=== PATIENT | male | born 1990 | race Caucasian/White ===

== ENCOUNTER 2018-04-02 11:00 | Emergency (ER) | payer MEDICAID, SELFPAY ==
[2018-04-02 11:05] VITALS: BP 162/91; PULSE 85; RESP 18; TEMP 35.9; O2SAT 97
--- NOTE | 2018-04-02 11:25 | DI.CT_ITS ---
SYMPTOMS/DIAGNOSIS: CHEST PAIN, HEMOPTYSIS PE CHEST CT: CT angiography was performed with multi slice acquisition and multi planar and 3D reconstruction. The study was carried out according to the usual protocol with intravenous administration of 125 cc's of Omnipaque 350. There is no evidence of pulmonary embolic disease. There are ground glass densities in the lungs. The findings nonspecific but could represent an acute pneumonitis. There is no pneumothorax or pleural effusion. The heart is not enlarged. There is no evidence of a pericardial effusion. There is no evidence of an aortic aneurysm or dissection.
--- NOTE | 2018-04-02 11:28 | W.ED.GENAD ---
Discharge Plan Disposition Patient Disposition: HOME Condition: Stable Discharge Details Chief Complaint: SOB Clinical Impression: Chest pain Primary Care Provider: Norm Chamorro ED Provider: Cuco Yates Home Meds and New Rx's Prescriptions: New azithromycin 500 mg tablet 250 mg PO DAILY 5 Days Qty: 2.5 RF: 0 Discharge Instructions Instructions: Chest Pain (ED) Additional Instructions: your blood work and cat scan did not show any significant abnormalities. Given your cough with blood we are starting you on antibiotics follow up with your primary care provider within a week if you have significant worsening of pain or difficulty breathing return to the emergency department Discharge Data Discharge Physician: Cuco Yates Medical Decision Making MDM Narrative Medical decision making narrative: 27 yo male who denies chronic medical problems comes in with cc of left sided chest pain. He states it started on Friday while having intercourse and states he felt a crack in his left sided of his chest. continues to have pain, nonradiating and no pain with exertion, and no n/v or diaphoresis. Does have pain with palpation to the left side of his chest. He does note he has had small amount of blood when he coughs in the morning the past few days as well. his wells score is moderate so will obtain cta to eval for PE. No tearing back pain to suggest dissection and normal vascular exam. Heart score is 1 due to smoking, will send troponin pt's pain resolved and only has pain with palpation to left chest. labs unremarkable, given length of time with symptoms do notfeel repeat troponin indicated. Awaiting CTA CTA shows no acute findings, has nonspecific ground glass opacities per Dr. Salmon, remains stable. I advised he f/u with pcp within one week and return precautions given. Given he states he has had some streaking blood tinged sputum will place on abx to cover for acute bronchitis Differential Diagnosis ptx, chest wall strain, pe, acs Imaging Data Radiologic Study: Attestation: I personally reviewed and interpreted this imaging study as follows: Imaging: CT Scan My impression: no acute findings Radiologist's impression: nonspecific ground glass opacities per Dr. Salmon Lab Data Lab results reviewed: Yes I reviewed the patient's lab results. ECG Data Attestation: I personally reviewed and interpreted this ECG (s) as follows: Prior ECG tracings: not available for review Interpretation: sinus rhythm, left axis, normal pr, no acute ischemic findings HPI General Mode of arrival: ambulatory. Date/Time Provider Initiated Documentation: 04/02/18 11:18. Limitations to Documentation: no limitations. Information obtained by: patient. History of Present Illness 27 year old M presents to the emergency department with the chief complaint of chest pain, described as moderate, with intensity rated at 3. Quality is described as other (tightness), and is localized to the chest. Patient reports no radiation. Patient started experiencing this day(s) (5) and it has been constant. No relieving factors improve symptom(s), No exacerbating factors reported . Patient notes other (hemoptysis). Patient did receive the following treatments prior to arrival, none Related Data Previous Rx's Medication Instructions Recorded azithromycin 250 mg PO DAILY 5 Days #2.5 tab 04/02/18 Allergies Allergy/AdvReac Type Severity Reaction Status Date / Time No Known Allergies Allergy Unverified 04/02/18 11:17 General Stated Complaint: SOB JOSE: 2 Review of Systems Review of Systems All systems reviewed & are unremarkable except as noted in HPI and below Constitutional Denies chills, Denies fever(s) and Denies weakness Eyes Patient Denies loss of vision ENT Denies change in voice Cardiovascular Reports chest pain and Reports dyspnea Respiratory Reports dyspnea Gastrointestinal Denies abdominal pain, Denies nausea and Denies vomiting Genitourinary Denies dysuria Musculoskeletal Denies joint swelling Integumentary/Breasts Denies rash Neurologic Denies loss of vision and Denies weakness Psychiatric Denies depression Endocrine Denies cold intolerance and Denies heat intolerance Allergic/Immunologic Reports urticaria [facility] Social History Smoking/Tobacco Use Status: Current every day Exam Const General: no acute distress Orientation: alert [facility] Head: normal to inspection Ears: external ears normal General nose exam: external nose normal Mouth: moist mucous membranes Eyes General: appearance normal, both eyes and all related structures Neck Neck: normal visual inspection Resp Effort & Inspection: normal respiratory effort and able to speak in complete sentences Cardio Rate: regular rate Skin General skin exam: no rashes or lesions noted Neuro General: alert and oriented x3 Extrem General: normal to inspection Psych Mental Status: mental status grossly normal Course Vital Signs Temperature 35.9 C L 04/02/18 11:05 Pulse 85 04/02/18 11:05 Respiratory Rate 18 04/02/18 11:05 Blood Pressure 162/91 H 04/02/18 11:05 Pulse Oximetry 97 04/02/18 11:05 Temperature 35.9 C L 04/02/18 11:05 Pulse 85 04/02/18 11:05 Respiratory Rate 18 04/02/18 11:05 Blood Pressure 162/91 H 04/02/18 11:05 Pulse Oximetry 97 04/02/18 11:05
[2018-04-02] MEDS: Aspirin 81 MG CHEW 324 MG CH (11:30)
--- NOTE | 2018-04-02 11:34 | ED.GENADUL_ITS ---
Discharge Plan Disposition Patient Disposition: HOME Condition: Stable Discharge Details Chief Complaint: SOB Clinical Impression: Chest pain Primary Care Provider: Norm Chamorro ED Provider: Cuco Yates Home Meds and New Rx's Prescriptions: New azithromycin 500 mg tablet 250 mg PO DAILY 5 Days Qty: 2.5 RF: 0 Discharge Instructions Instructions: Chest Pain (ED) Additional Instructions: your blood work and cat scan did not show any significant abnormalities. Given your cough with blood we are starting you on antibiotics follow up with your primary care provider within a week if you have significant worsening of pain or difficulty breathing return to the emergency department Discharge Data Discharge Physician: Cuco Yates Medical Decision Making MDM Narrative Medical decision making narrative: 27 yo male who denies chronic medical problems comes in with cc of left sided chest pain. He states it started on Friday while having intercourse and states he felt a crack in his left sided of his chest. continues to have pain, nonradiating and no pain with exertion, and no n/v or diaphoresis. Does have pain with palpation to the left side of his chest. He does note he has had small amount of blood when he coughs in the morning the past few days as well. his wells score is moderate so will obtain cta to eval for PE. No tearing back pain to suggest dissection and normal vascular exam. Heart score is 1 due to smoking, will send troponin pt's pain resolved and only has pain with palpation to left chest. labs unremarkable, given length of time with symptoms do notfeel repeat troponin indicated. Awaiting CTA CTA shows no acute findings, has nonspecific ground glass opacities per Dr. Salmon , remains stable. I advised he f/u with pcp within one week and return precautions given. Given he states he has had some streaking blood tinged sputum will place on abx to cover for acute bronchitis Differential Diagnosis ptx, chest wall strain, pe, acs Imaging Data Radiologic Study: Attestation: I personally reviewed and interpreted this imaging study as follows: Imaging: CT Scan My impression: no acute findings Radiologist's impression: nonspecific ground glass opacities per Dr. Salmon Lab Data Lab results reviewed: Yes I reviewed the patient's lab results. ECG Data Attestation: I personally reviewed and interpreted this ECG (s) as follows: Prior ECG tracings: not available for review Interpretation: sinus rhythm, left axis, normal pr, no acute ischemic findings HPI General Mode of arrival: ambulatory . Date/Time Provider Initiated Documentation: 04/02/18 11:18 . Limitations to Documentation: no limitations . Information obtained by: patient . History of Present Illness 27 year old M presents to the emergency department with the chief complaint of chest pain, described as moderate, with intensity rated at 3. Quality is described as other (tightness), and is localized to the chest. Patient reports no radiation. Patient started experiencing this day(s) (5) and it has been constant. No relieving factors improve symptom(s), No exacerbating factors reported . Patient notes other (hemoptysis). Patient did receive the following treatments prior to arrival, none Related Data Previous Rx's Medication Instructions Recorded azithromycin 250 mg PO DAILY 5 Days #2.5 tab 04/02/18 Allergies Allergy/AdvReac Type Severity Reaction Status Date / Time No Known Allergies Allergy Unverified 04/02/18 11:17 General Stated Complaint: SOB JOSE: 2 Review of Systems Review of Systems All systems reviewed & are unremarkable except as noted in HPI and below Constitutional Denies chills, Denies fever(s) and Denies weakness Eyes Patient Denies loss of vision ENT Denies change in voice Cardiovascular Reports chest pain and Reports dyspnea Respiratory Reports dyspnea Gastrointestinal Denies abdominal pain, Denies nausea and Denies vomiting Genitourinary Denies dysuria Musculoskeletal Denies joint swelling Integumentary/Breasts Denies rash Neurologic Denies loss of vision and Denies weakness Psychiatric Denies depression Endocrine Denies cold intolerance and Denies heat intolerance Allergic/Immunologic Reports urticaria [facility] Social History Smoking/Tobacco Use Status: Current every day Exam Const General: no acute distress Orientation: alert [facility] Head: normal to inspection Ears: external ears normal General nose exam: external nose normal Mouth: moist mucous membranes Eyes General: appearance normal, both eyes and all related structures Neck Neck: normal visual inspection Resp Effort & Inspection: normal respiratory effort and able to speak in complete sentences Cardio Rate: regular rate Skin General skin exam: no rashes or lesions noted Neuro General: alert and oriented x3 Extrem General: normal to inspection Psych Mental Status: mental status grossly normal Course Vital Signs Temperature 35.9 C L 04/02/18 11:05 Pulse 85 04/02/18 11:05 Respiratory Rate 18 04/02/18 11:05 Blood Pressure 162/91 H 04/02/18 11:05 Pulse Oximetry 97 04/02/18 11:05 Temperature 35.9 C L 04/02/18 11:05 Pulse 85 04/02/18 11:05 Respiratory Rate 18 04/02/18 11:05 Blood Pressure 162/91 H 04/02/18 11:05 Pulse Oximetry 97 04/02/18 11:05
[2018-04-02 11:46] LABS: Abs Immature Grans 0.04 k/cumm (0.0-0.09); Absolute Basophil Count 0.06 k/cumm (0.0-0.2); Absolute Eosinophil Count 0.31 k/cumm (0.0-0.7); Absolute Lymphocyte Count 2.06 k/cumm (1.2-3.4); Absolute Monocyte Count 0.66 k/cumm (0.11-0.7); Absolute Neutrophil Count 6.74 k/cumm (1.2-6.7); Basophils % 0.6; Eosinophils % 3.1; HCT 49.6 % (40.0-50.0); HGB 18.1 g/dL (13.5-17.5); Immature Grans % 0.4; Lymphocytes % 20.9; Mean Corp. HGB Concentration 36.5 g/dL (32.0-36.0); Mean Corpuscular Hemoglobin 31.8 pg (27.0-33.0); Mean Corpuscular Volume 87.2 fL (80-95); Mean Platelet Volume 10.6 fL (8.0-11.0); Monocytes % 6.7; Neutrophils % 68.3; Platelet Count 165 x1000/uL (130-400); RBC 5.69 m/cumm (4.50-6.00); White Blood Cell Count 9.87 k/cumm (4.4-10.8)
[2018-04-02 12:02] LABS: PTT Activated 23.9 sec (21.0-31.4)
[2018-04-02 12:07] LABS: ALT 55 U/L (12-78); AST 23 U/L (15-37); Albumin 3.3 g/dL (3.4-5.0); Alkaline Phosphatase 75 U/L (46-116); BUN 15 mg/dL (7-18); Bilirubin, Total 0.6 mg/dL (0.2-1.0); CREATININE 1.14 mg/dL (0.70-1.30); Calcium 8.5 mg/dL (8.5-10.1); Chloride 100 mmol/L (98-107); Glucose 367 mg/dL (70-100); Potassium 4.4 mmol/L (3.5-5.1); Sodium 134 mmol/L (136-145); Total Protein 7.1 g/dL (6.4-8.2)
[2018-04-02 12:08] LABS: Troponin I < 0.02 ng/mL (0.00-0.06)
[2018-04-02] MEDS: Omnipaque 350 MG/ML 100 ML BTL IJ (12:23)
[2018-04-02 13:14] VITALS: RESP 20
[2018-04-02 13:15] VITALS: BP 145/80; PULSE 88; RESP 18; TEMP 36.9; O2SAT 99
== END 2018-04-02 13:16 | disposition home or self-care (01) ==
PROVIDERS: Emergency Provider Emergency Medicine; PCP Family Medicine
DX: R07.9 Chest pain, unspecified (principal)
CPT/HCPCS: 36415; 71275; 80053; 93005; 99285; 83735; 84484; 85025; 85610; 85730; 93010; 99284; J3490

== ENCOUNTER 2019-07-07 08:44 | Emergency (ER) | payer SELFPAY ==
[2019-07-07] VITALS (60 sets, daily range): BP systolic 128–177; BP diastolic 61–82; PULSE 78–95; RESP 4–32; TEMP 36.6; O2SAT 95–99
--- NOTE | 2019-07-07 09:15 | ED.GENADUL_ITS ---
Discharge Plan Disposition Patient Disposition: HOME Condition: Improving Discharge Details Chief Complaint: SOB Clinical Impression: Gastritis Primary Care Provider: Norm Chamorro ED Provider: Henri Joshi Home Meds and New Rx's Prescriptions: No Action albuterol sulfate [ProAir HFA] 90 mcg/actuation Hfa Aerosol Inhaler 2 puff INHALATION DIRECTED PRNRF: 0 Discharge Instructions Instructions: Gastritis (ED) Medical Decision Making 29-year-old male presents from home partner. He complains of weeks of nausea, bloating, loose watery stool and increased flatus. This is in context of recent URI that was treated with azithromycin, finishing 4 days ago. He feels his respiratory symptoms are improving. His exam reveals initial mild hypertension that resolves, otherwise normal vital signs. He is tender in the epigastrium and mildly so diffusely in the abdomen. Differential diagnosis includes posttussive strain, gastritis, colitis, diverticulitis, atypical presentation of other peritonitis. Patient had screening laboratories obtained and was referred for CT images. His white blood cell count is 8, hematocrit 48, platelets are 149. Chemistries show sodium 137, test 3.9, chloride 100, bicarb 25, BUN 14, creatinine 0.8. Magnesium slightly low at 1.5 and supplemented in the ED. Patient's troponin and LFTs are unremarkable. CT of the abdomen as well as chest x-ray without acute findings. I do feel there is a component of gastritis. Patient was stated takes intermittent Nexium but I will prescribe him a PPI for 2 weeks and add Carafate. To follow-up with PMD for recheck. He understands homecare and return precautions. HPI General Mode of arrival: ambulatory . Date/Time Provider Initiated Documentation: 07/07/19 09:01 . Limitations to Documentation: no limitations . Information obtained by: patient . History of Present Illness 29 year old M presents to the emergency department with the chief complaint of 4 weeks of cough that is improving. Abdominal bloating and vomiting., described as moderate, and is localized to the abdomen. Patient reports no radiation. Patient started experiencing this week(s) and it has been intermittent. No relieving factors improve symptom(s), No exacerbating factors reported . Patient notes loss of appetite and nausea/vomiting; denies chest pain, fever/chills, syncope and weakness. Patient did receive the following treatments prior to arrival, none Related Data Home Medications Medication Instructions Recorded Confirmed albuterol sulfate [ProAir HFA] 2 puff INHALATION DIRECTED PRN 07/07/19 07/07/19 Allergies Allergy/AdvReac Type Severity Reaction Status Date / Time amoxicillin AdvReac Mild Other (See Unverified 07/07/19 08:51 Comment) General Stated Complaint: SOB JOSE: 3 Review of Systems Narrative: 6 systems reviewed and otherwise negative. PFSH Medical History Asthmatic bronchitis (Acute) Herpes (Acute) Smoker (Acute) Surgical History (Updated 07/07/19 @ 08:53 by Gladys Herzog) History of back surgery (Acute) 2013 Social History Smoking/Tobacco Use Status: Current every day Tobacco Type: cigarettes Alcohol Intake: current Alcohol Intake frequency: holidays/special occasions only Drug use: Never Do you feel safe at home: Yes Do you feel safe in your relationship?: Yes Exam Narrative Exam Narrative: GEN: awake, alert, oriented 3. Pleasant, well groomed, interactive. HEAD: Normocephalic, atraumatic ENT: Mucous membranes moist, oropharynx unremarkable, External ear exam unremarkable EYES: PERRL, EOMI NECK: Full ROM, no RENAN, no menigismus CHEST/RESP: Nontender, clear to auscultation bilateral, no wheeze/rhonchi/rales CARDIOVASCULAR: RRR, no murmur, rub desire. 2+ Rad pulse bilateral ABDOMEN: Soft, tender in the epigastrium and throughout the abdomen, no mass. +Bowel sounds EXT: Full ROM, no edema, no rash Neuro: Grossly normal neurologic exam, conversant, interactive. Psych: Speech fluent, thoughts congruent, affect normal Course Vital Signs Vital signs: Vital Signs Temperature 36.6 C 07/07/19 08:48 Pulse 87 07/07/19 08:48 Respiratory Rate 14 07/07/19 08:48 Blood Pressure 177/82 H 07/07/19 08:48 Pulse Oximetry 96 07/07/19 08:48 Temperature 36.6 C 07/07/19 08:48 Temperature Source Oral 07/07/19 08:48 Pulse 87 07/07/19 08:48 Respiratory Rate 18 07/07/19 08:54 Respiratory Effort Non-Labored 07/07/19 08:54 Respiratory Depth Normal 07/07/19 08:54 Respiratory Pattern Normal 07/07/19 08:54 Blood Pressure 177/82 H 07/07/19 08:48 Pulse Oximetry 96 07/07/19 08:48 Pain Level 8 07/07/19 08:48
[2019-07-07 09:28] LABS: Abs Immature Grans 0.02 k/cumm (0.0-0.09); Absolute Basophil Count 0.02 k/cumm (0.0-0.2); Absolute Eosinophil Count 0.13 k/cumm (0.0-0.7); Absolute Lymphocyte Count 0.95 k/cumm (1.2-3.4); Absolute Monocyte Count 0.99 k/cumm (0.11-0.7); Absolute Neutrophil Count 5.96 k/cumm (1.2-6.7); Basophils % 0.2; Eosinophils % 1.6; HCT 48.6 % (40.0-50.0); HGB 17.3 g/dL (13.5-17.5); Immature Grans % 0.2; Lymphocytes % 11.8; Mean Corp. HGB Concentration 35.6 g/dL (32.0-36.0); Mean Corpuscular Hemoglobin 31.6 pg (27.0-33.0); Mean Corpuscular Volume 88.8 fL (80-95); Mean Platelet Volume 10.4 fL (8.0-11.0); Monocytes % 12.3; Neutrophils % 73.9; Platelet Count 149 x1000/uL (130-400); RBC 5.47 m/cumm (4.50-6.00); RBC Distribution Width 13.1 % (11.8-14.1); White Blood Cell Count 8.07 k/cumm (4.4-10.8)
[2019-07-07] MEDS: Ondansetron 4 MG/2 ML VIAL IVP (09:28)
[2019-07-07] MEDS: Pantoprazole 40 MG VIAL IVP (09:31)
[2019-07-07 09:47] LABS: ALT 60 U/L (16-63); AST 29 U/L (15-37); Albumin 3.2 g/dL (3.4-5.0); Alkaline Phosphatase 65 U/L (46-116); Anion Gap 11.4 mmol/L (3-11); BUN 14 mg/dL (7-18); Bilirubin, Total 0.6 mg/dL (0.2-1.0); CO2 25.6 mmol/L (21.0-32.0); CREATININE 0.86 mg/dL (0.70-1.30); Calcium 8.2 mg/dL (8.5-10.1); Chloride 100 mmol/L (98-107); Glucose 251 mg/dL (74-106); Magnesium 1.5 mg/dL (1.8-2.4); Potassium 3.9 mmol/L (3.5-5.1); Sodium 137 mmol/L (136-145); Total Protein 7.3 g/dL (6.4-8.2)
[2019-07-07 09:48] LABS: Troponin I < 0.05 ng/Ml (<0.06)
[2019-07-07] MEDS: MAGNESIUM SULFATE 1 GM/100 ML BAG IVPB (09:52)
[2019-07-07] MEDS: Omnipaque 350 MG/ML 100 ML BTL IJ (10:51)
--- NOTE | 2019-07-07 10:54 | DI.CT_ITS ---
EXAM: CT ABDOMEN PELVIS W CLINICAL HISTORY: bloating, nausea, vomiting. PO Contrast TECHNIQUE: Imaging Protocol: Axial computed tomography images with coronal and sagittal reformatted images were created and reviewed CONTRAST MATERIAL: Intravenous: Omnipaque 350 Contrast volume:125 mL contrast route:IV - Oral: Yes FINDINGS: ABDOMEN: Lung Bases: Atelectasis in the lung bases. Liver: There is fatty infiltration. No measurable mass. Portal, superior mesenteric and splenic vein s are patent. Hepatomegaly. Gallbladder and biliary tract: No radiodense calculus or dilation. Pancreas: Normal density, no abnormal calcifications or inflammatory process. Spleen: Splenomegaly. Kidneys: Normal size, contour and axis. No radiodense stones or obstructive uropathy. No masses seen. Adrenal glands: No masses seen. Abdominal Aorta: Abdominal portion non-dilated. PELVIS: Bladder: Symmetric distention, no gross wall thickening. Bowel: No obstruction or bowel wall thickening. The appendix is normal in size without evidence of ad jacent mesenteric fat stranding or adjacent fluid collection. Peritoneal cavity: No ascites, collection or mesenteric inflammatory response. Bones: Postsurgical changes at L5-S1. Degenerative changes in the spine. Reproductive organs: Within normal limits. Lymph nodes: Unremarkable. Impression: 1. No acute abnormality. 2. Hepatic steatosis. Hepato splenomegaly. DATA REPOSITORY: All CT scans at this facility are submitted to the National Radiology Data Registry (NRDR) Dose Index Registry (DIR) with the [employer] (ACR). RADIATION OPTIMIZATION: All CT scans at this facility use at least one of these dose optimization te chniques: automated exposure control; mA and/or kV adjustment per patient size (includes targeted exa ms where dose is matched to clinical indication); or iterative reconstruction.
[2019-07-07] MEDS: Omnipaque 350 MG/ML 50 ML BTL IJ (10:56)
--- NOTE | 2019-07-07 11:24 | DI.RAD_ITS ---
EXAM: XR CHEST 2V PA LATERAL CLINICAL HISTORY: cough x 6 wks, 'asthma'. TECHNIQUE: 2D digital imaging was performed. COMPARISON: CHEST 2 VIEWS PA,LAT from 04/13/2010 FINDINGS: LUNGS: Clear. No pleural abnormality seen. HEART: Normal. MEDIASTINUM: Normal. OTHER FINDINGS:Normal. IMPRESSION: No acute pulmonary findings.
--- NOTE | 2019-07-07 12:04 | DI.VRAD_ITS ---
PROCEDURE INFORMATION: Exam: CT Abdomen And Pelvis With Contrast Exam date and time: 07/07/2019 11:02 AM Age: 29 years old Clinical indication: Bloating and nausea and vomiting; Patient HX: Bloating, nausea, vomitting TECHNIQUE: Imaging protocol: Computed tomography of the abdomen and pelvis with intravenous contrast. Radiation optimization: All CT scans at this facility use at least one of these dose optimization techniques: automated exposure control; mA and/or kV adjustment per patient size (includes targeted exams where dose is matched to clinical indication); or iterative reconstruction. Contrast material: OMNI 350; Contrast volume: 125 ml; Contrast route: IV; COMPARISON: No relevant prior studies available. FINDINGS: Appendix is normal. Normal appearing solid organs. No intestinal obstruction. No obstructive uropathy. No free fluid. No free air. No inflammatory changes. IMPRESSION: No specific etiology identified for the patient's symptoms. Dictated and Authenticated by: Aguila Meyers MD. Ordering:ZARINA Álvarez MD
--- NOTE | 2019-07-07 12:04 | DI.VRAD_ITS ---
PROCEDURE INFORMATION: Exam: XR Chest, 2 Views Exam date and time: 07/07/2019 11:24 AM Age: 29 years old Clinical indication: Patient HX: Cough 6 weeks asthma TECHNIQUE: Imaging protocol: XR of the chest Views: 2 views. COMPARISON: CT Vascular^PE XXL (Adult) 04/02/2018 11:55 AM FINDINGS: The lung zamora are clear bilaterally. No focal pulmonary consolidation is present. The cardiac silhouette is within normal limits. The costophrenic angles are sharp. The bony structures appear unremarkable. IMPRESSION: No evidence of acute cardiopulmonary disease. Dictated and Authenticated by: Aguila Meyers MD. Ordering:ZARINA Álvarez MD
[2019-07-07] MEDS: Sucralfate 1 GM TAB PO ×2 (12:25)
== END 2019-07-07 12:31 | disposition home or self-care (01) ==
PROVIDERS: Emergency Provider Emergency Medicine; PCP Family Medicine
DX: R10.13 Epigastric pain (principal); E83.42 Hypomagnesemia; K29.00 Acute gastritis without bleeding; F17.210 Nicotine dependence, cigarettes, uncomplicated
CPT/HCPCS: 36415; 80053; 93005; 96365; 99285; 71046; 74177; 83735; 84484; 85025; 93010; 99284; J2405; J3475; J3490; Q9967

== ENCOUNTER 2021-09-20 12:41 | Emergency (ER) | payer SELFPAY ==
[2021-09-20] VITALS (55 sets, daily range): BP systolic 88–149; BP diastolic 31–85; PULSE 75–109; RESP 12–27; TEMP 36.5; O2SAT 95–98
--- NOTE | 2021-09-20 12:45 | RT.EKG_ITS ---
APPROVED REPORT Exam: Resting ECG Reason for Exam: SOB Patient Location: E HR:81 bpm ECG Measurements Heart Rate [address] 187 P 38 QRSd 109 QRS -51 QT 361 T 45 QTc 421 Conclusion Sinus rhythm...normal P axis, V-rate 60- 99 Inferior infarct, old...Q >35mS, II III aVF Sinus. Q waves inferior leads. No STEMI. I have reviewed and interpreted ECG and agree with software generated interpretation.
--- NOTE | 2021-09-20 13:00 | DI.CT_ITS ---
Exam(s) CT CHEST PE CTA EXAM: CT CHEST PE CTA CLINICAL HISTORY: Chest Pain, Hemoptysis. TECHNIQUE: Imaging Protocol: Axial CT angiography was performed with multi-slice acquisition and mu lti-planar and/or 3D reconstructions. CONTRAST MATERIAL: Intravenous: Omnipaque 350 Contrast volume:structured data in ml COMPARISON: CT CT ABDOMEN PELVIS W from 07/07/2019 FINDINGS: CT angiography of the chest was performed with intravenous infusion of 100 cc of Omnipaque 350. The lungs are predominantly clear. There are couple of poorly defined ground-glass opacities right u pper lobe near the lung apex. These are nonspecific but the possibility of infectious process is nash sed. Please correlate clinically.. No pleural effusion. Tracheobronchial tree appears intact. No evidence of pulmonary embolic disease. Thoracic aorta is of normal diameter, no thoracic aortic an eurysm or dissection, major branch vessels appear intact. No mediastinal or hilar adenopathy. Images obtained through the upper abdomen show markedly decreased hepatic attenuation consistent with hepatic steatosis. No gross abnormality seen involving the visualized portions of the spleen. IMPRESSION: Nonspecific right apical pulmonary opacities, consider pneumonitis.. No evidence of pulmonary emboli c disease. RADIATION DOSE DELIVERED: 708.42mGy.cm Total DLP 708.42mGy.cm Total DLP !Error CTDIvol DATA REPOSITORY: All CT scans at this facility are submitted to the National Radiology Data Registry (NRDR) Dose Index Registry (DIR) with the [employer] (ACR). RADIATION OPTIMIZATION: All CT scans at this facility use at least one of these dose optimization te chniques: automated exposure control; mA and/or kV adjustment per patient size (includes targeted exa ms where dose is matched to clinical indication); or iterative reconstruction.
--- NOTE | 2021-09-20 13:05 | ED.GENADUL_ITS ---
Discharge Plan Disposition Patient Disposition: [facility] Condition: Serious Discharge Details Clinical Impression: Chest pain, Elevated troponin Primary Care Provider: Norm Chamorro ED Provider: Juan Garcia Home Meds and New Rx's Prescriptions: No Action fenofibrate nanocrystallized 145 mg tablet 145 mg PO DAILY 0RF Label Comments: TAKE ONE TABLET BY MOUTH EVERY DAY losartan 25 mg tablet 25 mg DAILY 0RF Label Comments: TAKE ONE TABLET BY MOUTH EVERY DAY levothyroxine 150 mcg tablet 150 mcg DAILY 0RF Label Comments: TAKE ONE TABLET BY MOUTH EVERY DAY insulin aspart U-100 [Novolog Flexpen U-100 Insulin] 100 unit/mL (3 mL) insulin pen 20 unit SUBCUT HS PRN PRN0RF Label Comments: INJECT 14 UNITS SUBCUTANEOUSLY AT BREAKFAST AND 17 UNITS AT LUNCH AND DINNER Trulicity 1.5 mg/0.5 mL pen injector See Rx Instructions .ROUTE .COMPLEX 0RF Label Comments: INJECT THE CONTENTS OF ONE SYRINGE UNDER THE SKIN ONCE A WEEK Rx Instructions: 1.5 mg subcutaneously Tresiba FlexTouch U-200 200 unit/mL (3 mL) insulin pen 50 unit SUBCUT DAILY 0RF Label Comments: INJECT 60 UNITS SUBCUTANEOUSLY EVERY MORNING Discharge Data Discharge Date/Time-TO BE ENTERED AT DEPARTURE: 09/20/21 20:39 Medical Decision Making <Hazel Schofield - Last Filed: 09/22/21 15:50> 31-year-old male presents to the ER with chief complaint of left-sided chest pain for the last 3 days. Patient states that it has been intermittent but constant today. He denies any radiation. Associated with some shortness of breath and hemoptysis. He does have a past medical history of hyperlipidemia, hypertension, asthma, diabetes mellitus, he is a former smoker. Pain gets worse with taking a deep breath. He denies any injuries to his chest. Pain is not reproducible with palpation. Denies any abdominal pain no vomiting diarrhea denies any recent long trips in a car or plane. EKG was reviewed by Dr. Val Steel ER attending, Cardiac work-up ordered including CBC, CMP, serial troponins, chest CT to rule out PE. 324 mg aspirin. CBC within normal limits, D-dimer within normal limits, sodium slightly low at 135 glucose is 358 initial troponin elevated at 75. Chest CT W R/O PE: IMPRESSION: Nonspecific right apical pulmonary opacities, consider pneumonitis.. No evidence of pulmonary embolic disease. 1516: Patient was given 0.4 mg sublingual nitro x2 which brought his pain from a 7 down to a 0. CT chest results noted above. Negative for PE however there is a small right upper lobe opacities which could be early pneumonia. Serial troponin is pending at this time. I do recommend admission due to the elevated troponin and chest pain relieved by nitroglycerin. Care is to be handed off to oncoming provider Juan Garcia pending serial troponin and admission for chest pain observation. <LAWRENCE Novak - Last Filed: 09/20/21 20:08> 31-year-old male presents to the ER with chief complaint of left-sided chest pain for the last 3 days. Patient states that it has been intermittent but constant today. He denies any radiation. Associated with some shortness of breath and hemoptysis. He does have a past medical history of hyperlipidemia, hypertension, asthma, diabetes mellitus, he is a former smoker. Pain gets worse with taking a deep breath. He denies any injuries to his chest. Pain is not reproducible with palpation. Denies any abdominal pain no vomiting diarrhea denies any recent long trips in a car or plane. EKG was reviewed by Dr. Val Steel ER attending, Cardiac work-up ordered including CBC, CMP, serial troponins, chest CT to rule out PE. 324 mg aspirin. CBC within normal limits, D-dimer within normal limits, sodium slightly low at 135 glucose is 358 initial troponin elevated at 75. Chest CT W R/O PE: IMPRESSION: Nonspecific right apical pulmonary opacities, consider pneumonitis.. No evidenc e of pulmonary embolic disease. 1516: Patient was given 0.4 mg sublingual nitro x2 which brought his pain from a 7 down to a 0. CT chest results noted above. Negative for PE however there is a small right upper lobe opacities which could be early pneumonia. Serial troponin is pending at this time. I do recommend admission due to the elevated troponin and chest pain relieved by nitroglycerin. Care is to be handed off to oncoming provider Juan Garcia pending serial troponin and admission for chest pain observation. 1530 I assumed care of this 31-year-old gentleman from my colleague MOSHE Schofield, please see her initial HPI and examination. In short patient has had left-sided chest pain for the past 3 days, work-up thus far reveals no PE but his initial troponin was elevated. He initially had pain at 7 out of 10, was given 2 nitro and pain had resolved completely. He has remained hemodynamically stable while here in the ER. Patient reports left-sided chest pain 4 out of 10, given a single nitro and pain resolved completely. Repeat troponin was 58. EKG performed at 1646, please see official report by Dr. Steel. Sinus rhythm, ventricular rate of 84, incomplete right bundle branch block. No obvious signs of ischemia, no STEMI. No dynamic changes when compared to initial EKG. 31-year-old morbidly obese gentleman, former smoker, past medical history of diabetes, presents with left-sided chest pain that improved with nitro. When comparing previous EKG it would appear as though he has a new incomplete right bundle branch block. Initial troponin was elevated. Heart score of 4, I do not believe the patient is safe to be discharged home but given his overall presentation I would like to discuss the case with cardiology to decide whether he is best served transferred to [facility] or observed here at our facility. I was able to speak with cardiology, Dr. Reyes at [facility] at 1712. She recommends initiating a heparin drip, obtaining a lipase to be sure this is not a presentation of pancreatitis and if unremarkable she believes transfer at her facility is reasonable. I was able to speak with Dr. Reyes once again at 1817, lipase was unremarkable. Transfer to their facility will be set up into the cardiology team, Dr. Benjamin. All appropriate paperwork completed The patient remains both hemodynamically stable and chest pain-free. This documentation was generated using [employer] softwareation system, please disregard any oddities of phrase or misspellings. HPI <Hazel Schofield - Last Filed: 09/22/21 15:50> General Mode of arrival: ambulatory . Date/Time Provider Initiated Documentation: 09/20/21 12:43 . Limitations to Documentation: no limitations . Information obtained by: patient, RN notes reviewed and old records reviewed . HPI Narrative: 31-year-old male presents to the ER with chief complaint of left-sided chest pain for the last 3 days. Patient states that it has been intermittent but constant today. He denies any radiation. Associated with some shortness of breath and hemoptysis. He does have a past medical history of hyperlipidemia, hypertension, asthma, diabetes mellitus, he is a former smoker. Pain gets worse with taking a deep breath. He denies any injuries to his chest. Pain is not reproducible with palpation. Denies any abdominal pain no vomiting diarrhea den ies any recent long trips in a car or plane. Related Data Home Medications Medication Instructions Recorded Confirmed dulaglutide 1.5 mg/0.5 mL See Rx Instructions .ROUTE .COMPLEX 09/20/21 09/20/21 subcutaneous pen injector ([employer]) fenofibrate nanocrystallized 145 145 mg PO DAILY 09/20/21 09/20/21 mg tablet insulin aspart U-100 100 unit/mL 20 unit SUBCUT HS PRN PRN 09/20/21 09/20/21 (3 mL) subcutaneous pen (Novolog Flexpen U-100 Insulin aspart) insulin degludec 200 unit/mL (3 50 unit SUBCUT DAILY 09/20/21 09/20/21 mL) subcutaneous pen (Tresiba FlexTouch U-200 insulin) levothyroxine 150 mcg tablet 150 mcg DAILY 09/20/21 09/20/21 losartan 25 mg tablet 25 mg DAILY 09/20/21 09/20/21 Allergies Allergy/AdvReac Type Severity Reaction Status Date / Time amoxicillin AdvReac Mild Other (See Unverified 09/20/21 13:05 Comment) General Stated Complaint: Chest Pain JOSE: 2 Review of Systems <Hazel Schofield - Last Filed: 09/22/21 15:50> All systems reviewed & are unremarkable except as noted in HPI and below Cardiovascular Cardiovascular: Reports chest pain, Reports chest pain at rest, Reports chest pain with activity and Denies leg edema Respiratory Respiratory: Reports pain on inspiration Gastrointestinal Gastrointestinal: Denies diarrhea and Denies vomiting PFS <Hazel Schofield - Last Filed: 09/22/21 15:50> All Active Problems (Updated 09/20/21 @ 18:48 by LAWRENCE Novak) Chest pain (Acute) Elevated troponin (Acute) Medical History Asthmatic bronchitis Herpes Smoker Surgical History History of back surgery 2013 Social History Smoking/Tobacco Use Status: Former Tobacco Use Smoking risk assessment performed?: Yes Alcohol Intake: current Alcohol Intake frequency: holidays/special occasions only Drug use: Never Do you feel safe at home: Yes Do you feel safe in your relationship?: Yes Exam <Hazel Schofield [facility] Filed: 09/22/21 15:50> Narrative Exam Narrative: Constitutional: Alert and oriented x3. Appears stated age. Obese body habitus. Head: Normocephalic, no trauma. Eyes: Pupils PERRL, Red reflex noted, EOM's intact. Eyelids symmetrical without lesions, discharge, or swelling. ENT: Bilateral TM's WNL, External ear normal to inspection, no mastoid TTP, swelling, or erythema, Nasal turbinates WNL, no nasal discharge. Normal dentition, Posterior pharynx WNL, no exudate. Chest: RRR, Normal S1, S2, distal pulses intact. Resp: Lungs clear to auscultation bilaterally, no wheezes, rales, or rhonchi. Abdomen: Soft, non-distended, Normoactive bowel sounds all 4 quads. Musculoskeletal: Normal gait, 5/5 strength to all four extremities. Skin: No suspicious rashes or lesions. Capillary refill less than 2 sec. Neurologic: Cranial nerves II-XII intact. Alert and oriented x 3. Motor: No deficits noted. Sensory: Intact bilaterally all 4 extremities. Reflexes: DTR's intact bilaterally.. Hematologic/Lymphatic: No ecchymosis, no lymphadenopathy. Course <Hazel Schofield - Last Filed: 09/22/21 15:50> Vital Signs Vital signs: Vital Signs Temperature 36.5 C 09/20/21 12:56 Pulse 88 09/20/21 12:56 Respiratory Rate 15 09/20/21 12:56 Blood Pressure 149/85 H 09/20/21 12:56 Pulse Oximetry 97 09/20/21 12:56 Temperature 36.5 C 09/20/21 12:56 Temperature Source Temporal Artery Scan 09/20/21 12:56 Pulse 88 09/20/21 12:56 Respiratory Rate 23 09/20/21 12:58 Respiratory Effort Non-Labored 09/20/21 12:58 Respiratory Depth Normal 09/20/21 12:58 Respiratory Pattern Normal 09/20/21 12:58 Blood Pressure 149/85 H 09/20/21 12:56 Blood Pressure Position Supine 09/20/21 12:56 Pulse Oximetry 97 09/20/21 12:56 Oxygen Delivery Method Room Air 09/20/21 12:56 Oxygen Flow Rate 0 09/20/21 12:56 Pain Level 6 09/20/21 12:58 <LAWRENCE Novak - Last Filed: 09/20/21 20:08> Critical Care Time Critical Care Time: Yes Total Critical Care Time: 35 Attestation: Upon my evaluation, this patient had a high probability of clinically significant, life-threatening deterioration due to their current medical condit ions, which required my direct attention, intervention, and personal management. I have personally provided greater than 30 minutes of critical care time exclusive of the time spend on separately billable procedures. Time includes obtaining a history, examining the patient, pulse oximetry, review of laboratory data, radiology results, discussion with consultants, arranging urgent treatment with development of a management plan, evaluation of patient's response to treatment, and monitoring for potential decompensation. Interventions were performed as documented above. Sign Out <Hazel Schofield - Last Filed: 09/22/21 15:50> Sign Out Data: Sign Out Comment: Left sided chest pain x 3 days ago. Responsive to NTG 0.4mg x 2. Now at a 0. Troponin 75. Recommend admission for chest pain observation. Repeat Troponin pending. Heart score is a 4. Last updated by Hazel Schofield at 09/20/21 15:30
[2021-09-20 13:24] LABS: Abs Immature Grans 0.06 10^3/uL (0.0-0.06); Absolute Basophil Count 0.09 10^3/uL (0.0-0.2); Absolute Eosinophil Count 0.23 10^3/uL (0.0-0.7); Absolute Monocyte Count 0.48 10^3/uL (0.1-0.8); Absolute Neutrophil Count 5.67 10^3/uL (1.2-6.7); Eosinophils % 2.7; HCT 45.8 % (40.0-50.0); HGB 16.4 g/dL (13.5-17.5); Immature Grans % 0.7; Lymphocytes % 24.3; MCH 31.9 pg (27.0-33.0); MCHC 35.8 % (32.0-36.0); MCV 89.1 fL (80-95); MPV 10.3 fL (8.0-11.0); Monocytes % 5.6; Neutrophils % 65.7; Nucleated RBC 0 %; Platelet Count 190 10^3/uL (130-400); RBC 5.14 10^6/uL (4.36-5.78); RDW 12.4 % (11.8-14.1); RDW-SD 40.5 fL; WBC 8.63 10^3/uL (4.4-10.8)
[2021-09-20 13:40] LABS: ALT 64 U/L (16-63); Albumin 3.5 g/dL (3.4-5.0); Alkaline Phosphatase 75 U/L (46-116); BUN 15 mg/dL (7-18); Bilirubin, Total 0.4 mg/dL (0.2-1.0); Calcium 8.4 mg/dL (8.5-10.1); Chloride 99 mmol/L (98-107); Glucose 358 mg/dL (74-106); Magnesium 2.1 mg/dL (1.8-2.4); Potassium 3.9 mmol/L (3.5-5.1); Sodium 135 mmol/L (136-145); Total Protein 7.4 g/dL (6.4-8.2)
[2021-09-20 13:53] LABS: Troponin I 75 ng/L (<or=60)
[2021-09-20 14:07] LABS: AST 27 U/L (15-37)
[2021-09-20 14:10] LABS: D-Dimer 155 ng/mlFEU (<500)
[2021-09-20] MEDS: Normal Saline Flush 10 ML SYR IVP (14:31)
[2021-09-20] MEDS: Omnipaque 350 MG/ML 100 ML BTL IJ (14:32)
[2021-09-20] MEDS: nitroGLYcerin 0.4 MG TAB SL ×2 (15:16→16:45)
[2021-09-20 15:17] LABS: Source Nasal/Nares
[2021-09-20] MEDS: Aspirin 81 MG CHEW 324 MG CH (15:18)
[2021-09-20] MEDS: Normal Saline 1,000 ML 1000 ML IV (15:19)
[2021-09-20 16:29] LABS: Troponin I 58 ng/L (<or=60)
[2021-09-20 16:30] LABS: COVID-19 PCR Negative (Negative)
--- NOTE | 2021-09-20 16:30 | RT.EKG_ITS ---
APPROVED REPORT Exam: Resting ECG Reason for Exam: chest pain Patient Location: E HR:84 bpm ECG Measurements Heart Rate 84 AXIS IN 191 P 48 QRSd 113 QRS -5 QT 374 T 47 QTc 442 Conclusion Sinus rhythm...normal P axis, V-rate 60- 99 Incomplete right bundle branch block...QRSd >112, terminal axis(90,270) Low voltage, precordial leads...precordial leads <1.0mV Consider anterior infarct...Q >30mS in V2-V5. Sinus. Incomplete RBBB. Q waves anterior leads. No STEMI. I have reviewed and interpreted ECG and agree with software generated interpretation.
--- NOTE | 2021-09-20 16:53 | SUR.PHASEI ---
pt given nitro sl times one pt states pain relief
[2021-09-20 17:59] LABS: INR 1.1 (0.9-1.1); PTT Activated 23.3 sec (21.0-27.5); Prothrombin Time 11.1 sec (9.3-11.0)
[2021-09-20 18:06] LABS: Lipase 47 U/L (73-393)
== END 2021-09-20 20:39 | disposition short-term general hospital (02) ==
PROVIDERS: Registered Nurse Emergency; Emergency Provider Physician Assistant; PCP Family Medicine
DX: R07.9 Chest pain, unspecified (principal); R79.89 Other specified abnormal findings of blood chemistry; R06.02 Shortness of breath; I45.10 Unspecified right bundle-branch block
CPT/HCPCS: 71275; 80053; 83690; 87635; 93005; 96361; 96365; 96376; 99291; 83735; 84484; 85025; 85379; 85610; 85730; 93010; J3490

== ENCOUNTER 2024-02-17 13:14 | Emergency (ER) | payer SELFPAY ==
[2024-02-17 13:38] VITALS: BP 156/92; PULSE 97; RESP 18; TEMP 35.6; O2SAT 97
--- NOTE | 2024-02-17 13:59 | ED.GENADUL_ITS ---
Discharge Plan Disposition Patient Disposition: Home Condition: Stable Discharge Details Clinical Impression: Lumbago Primary Care Provider: Norm Chamorro ED Provider: Hazel Schofield Home Meds and New Rx's Prescriptions: New prednisone 20 mg tablet 40 mg PO DAILY 5 Days Qty: 10 0RF Rx Instructions: Take 2 tablets by mouth daily x 5 days tramadol 50 mg tablet 50 mg PO BID PRN (Reason: pain) Qty: 7 0RF Rx Instructions: Take 1 tablet by mouth twice daily only as needed for moderate to severe pain. Do not drive or operate heavy machinery while taking this medication. Continued fenofibrate nanocrystallized 145 mg tablet 145 mg PO DAILY Patient Comments: TAKE ONE TABLET BY MOUTH EVERY DAY losartan 25 mg tablet 25 mg PO DAILY Patient Comments: TAKE ONE TABLET BY MOUTH EVERY DAY levothyroxine 150 mcg tablet 400 mcg PO DAILY Patient Comments: TAKE ONE TABLET BY MOUTH EVERY DAY insulin aspart U-100 [Novolog FlexPen U-100 Insulin] 100 unit/mL (3 mL) insulin pen 20 unit SUBCUT HS PRN PRN Patient Comments: INJECT 14 UNITS SUBCUTANEOUSLY AT BREAKFAST AND 17 UNITS AT LUNCH AND DINNER insulin degludec [Tresiba FlexTouch U-200] 200 unit/mL (3 mL) insulin pen 50 unit SUBCUT DAILY Patient Comments: INJECT 60 UNITS SUBCUTANEOUSLY EVERY MORNING atorvastatin 20 mg tablet 20 mg PO DAILY Patient Comments: TAKE ONE TABLET BY MOUTH EVERY EVENING Discharge Instructions Instructions: Low Back Pain ED, Opioids for Short-Term Treatment of Pain ED Additional Instructions: Please take the medication as prescribed as needed for moderate or severe pain. Please take Tylenol and ibuprofen for less severe pain. Do not operate heavy machinery or drive while on this medication. Alternate ice and heat. Return to ED or be seen sooner for any loss of bowel or bladder control, weakness in your legs or feet, feeling as if you need to urinate but cannot, numbness or tingling in your groin or rectum or any concerns. Follow up with primary care provider in 5-7 days. Return to ED sooner if any worsening or concerns. Referrals: Norm Chamorro [Primary Care Provider] - 1 week HPI General Mode of arrival: ambulatory . Date/Time Provider Initiated Documentation: 02/17/24 13:43 . Limitations to Documentation: no limitations . Information obtained by: patient, RN notes reviewed and old records reviewed . HPI Narrative: 33-year-old male presents to the ER with a chief complaint of lower back pain with radiation into his bilateral thighs x 1 week, patient reports that he was pushing heavy equipment up over his head and had increased in symptoms. He denies any saddle anesthesia however he does have diabetes and peripheral neuropathy to his lower extremities which is not new. Denies any weakness foot drop to his lower extremities. He also reports some constipation, denies any in continence of bowel or bladder. He also notes that he has had dark discoloration of his urine and foul smell. Does have a surgical history of lumbar fusion in 2010 at [facility]. He has been taking ibuprofen and naproxen with little to no relief. He does report nausea due to the pain and chills and cold sweats. He denies any abdominal pain, diarrhea, or any other associated symptoms. Related Data Home Medications ?Medication ?Instructions ?Recorded ?Confirmed fenofibrate nanocrystallized 145 145 mg PO DAILY 09/20/21 02/17/24 mg tablet insulin aspart U-100 100 unit/mL 20 unit subcut HS PRN PRN 09/20/21 02/17/24 (3 mL) subcutaneous pen (Novolog FlexPen U-100 Insulin aspart) insulin degludec 200 unit/mL (3 50 unit subcut DAILY 09/20/21 02/17/24 mL) subcutaneous pen (Tresiba FlexTouch U-200 insulin) levothyroxine 150 mcg tablet 400 mcg PO DAILY 09/20/21 02/17/24 losartan 25 mg tablet 25 mg PO DAILY 09/20/21 02/17/24 atorvastatin 20 mg tablet 20 mg PO DAILY 02/17/24 02/17/24 prednisone 20 mg tablet 40 mg (2 x 20 mg) PO DAILY 5 days 02/17/24 #10 tabs tramadol 50 mg tablet 50 mg PO BID PRN pain #7 tabs 02/17/24 Previous Rx's ?Medication ?Instructions ?Recorded prednisone 20 mg tablet 40 mg (2 x 20 mg) PO DAILY 5 days 02/17/24 #10 tabs tramadol 50 mg tablet 50 mg PO BID PRN pain #7 tabs 02/17/24 Allergies Allergy/AdvReac Type Severity Reaction Status Date / Time amoxicillin AdvReac Mild Other (See Unverified 02/17/24 13:41 Comment) General Stated Complaint: Nk/Back Pain JOSE: 4 Review of Systems All systems reviewed & are unremarkable except as noted in HPI and below ENT Ears, Nose, Mouth, and Throat: Denies neck pain Genitourinary Genitourinary: Reports as per HPI, Denies genital pain and Denies scrotal swelling Musculoskeletal Musculoskeletal: Reports as per HPI, Reports abnormal gait (Stiff gait), Reports back pain, Denies muscle weakness, Denies neck pain, Reports numbness, Reports radiating pain into limb (Bilateral thighs) and Reports stiffness Neurologic Neurologic: Reports abnormal gait (Stiff gait) and Reports numbness Exam Narrative Exam Narrative: Constitutional: Alert and oriented x3. Appears stated age. Normal body habitus. Head: Normocephalic, no trauma. Eyes: Pupils PERRL, Red reflex noted, EOM's intact. Eyelids symmetrical without lesions, discharge, or swelling. Chest: RRR, Normal S1, S2, distal pulses intact. Resp: Lungs clear to auscultation bilaterally, no wheezes, rales, or rhonchi. Abdomen: Soft, non-distended, Normoactive bowel sounds all 4 quads. Musculoskeletal: Stiff gait, moves all 4 extremities without difficulty. Tenderness with palpation to bilateral lower paraspinous. There is a vertical healed surgical incision noted to his lower lumbar area. Skin: No suspicious rashes or lesions. Capillary refill less than 2 sec. Neurologic: Cranial nerves II-XII intact. Alert and oriented x 3. Motor: No deficits noted. Sensory: Intact bilaterally all 4 extremities. Mildly decreased sensation to his distal lower extremities which patient reports is his baseline. No foot drop or focal motor neurodeficits. Hematologic/Lymphatic: No ecchymosis, no lymphadenopathy. Course Vital Signs Vital signs: Vital Signs Temperature 35.6 C L 02/17/24 13:38 Pulse 97 H 02/17/24 13:38 Respiratory Rate 18 02/17/24 13:38 Blood Pressure 156/92 H 02/17/24 13:38 Pulse Oximetry 97 02/17/24 13:38 Temperature 35.6 C L 02/17/24 13:38 Pulse 97 H 02/17/24 13:38 Respiratory Rate 18 02/17/24 13:38 Respiratory Effort Normal, Non-Labored 02/17/24 13:45 Blood Pressure 156/92 H 02/17/24 13:38 Pulse Oximetry 97 02/17/24 13:38 Oxygen Delivery Method Room Air 02/17/24 13:38 Oxygen Flow Rate 0 02/17/24 13:38 Pain Level 10 02/17/24 13:45 Medical Decision Making 33-year-old male presents to the ER with a chief complaint of lower back pain with radiation into his bilateral thighs x 1 week, patient reports that he was pushing heavy equipment up over his head and had increased in symptoms. He denies any saddle anesthesia however he does have diabetes and peripheral neuropathy to his lower extremities which is not new. Denies any weakness foot drop to his lower extremities. He also reports some constipation, denies any incontinence of bowel or bladder. He also notes that he has had dark discoloration of his urine and foul smell. Does have a surgical history of lumbar fusion in 2010 at [facility]. He has been taking ibuprofen and naproxen with little to no relief. He does report nausea due to the pain and chills and cold sweats. He denies any abdominal pain, diarrhea, or any other associated symptoms. He does have a healed surgical scar noted on his lumbar spine, does have bilateral paraspinous tenderness with palpation, no focal gross neuromotor deficits. He is stiff with ambulation. Other past medical history includes high cholesterol hypothyroidism, hypertension and insulin-dependent diabetes. Differential diagnosis includes not limited to bulging disc, musculoskeletal pa in, UTI, kidney stone, less likely cauda equina, lumbar radiculopathy. CT T and L-spine ordered, prednisone 60 mg p.o. Zofran 4 mg ODT and tramadol 50 mg p.o. Urinalysis shows small blood 3-5 RBCs, greater than thousand glucose. CT abdomen pelvis without contrast added on to rule out kidney stone. Patient reports much improvement after the medications. Care will be handed off to oncoming provider Jacklyn Knight pending CT result and dispo most likely expected disposition at this time is discharge home pending CT result. Medical Records Medical records reviewed: Yes I reviewed the patient's medical records. Lab Data Lab results reviewed: Yes I reviewed the patient's lab results. Labs: Laboratory Tests Range/Units 02/17/24 14:14 Urine Color (Yellow) Yellow Urine Clarity (Clear) Clear Urine pH (5-8) 5.5 Ur Specific [employer] (1.005-1.025) 1.020 Urine Protein (Neg-Trace) mg/dL >=300 H Urine Ketones (Negative) mg/dL Negative Urine Blood (Negative) Small H Urine Nitrite (Negative) Negative Urine Bilirubin (Negative) Negative Urine Urobilinogen (Up to 0.2) mg/dL 0.2 Ur Leukocyte Esterase (Negative) Negative Urine RBC (0-2) HPF 3-5 H Urine WBC (0-5) HPF Negative Ur Epithelial Cells (Negative) HPF Few Urine Crystals (Negative) HPF Negative Urine Bacteria (Negative) HPF Negative Urine Casts (Negative) LPF 0-2 Hyaline Urine Mucus (Negative) Negative Ur Culture Indicated? No Urine Glucose (Negative) mg/dL >=1000 H Quality:SDOH Health Related Social Needs: No Data to Display PFSH All Active Problems (Updated 02/17/24 @ 15:17 by Hazel Schofield NP) Lumbago (Acute) Medical History (Updated 02/17/24 @ 15:17 by Hazel Schofield NP) Smoker Herpes Asthmatic bronchitis Surgical History History of back surgery 2014 Social History Smoking/Tobacco Use Status: Current every day Tobacco Type: smokeless tobacco Smoking risk assessment performed?: Yes Alcohol Intake: current Alcohol Intake frequency: holidays/special occasions only Drug use: Occasionally Substance use type: marijuana Do you feel safe at home: Yes Do you feel safe in your relationship?: Yes Sign Out Sign Out Data: Sign Out Comment: Pending CT renal colic w/o T and L spine CT's. 33 yr old Here with Lower back pain with radiation to his thighs x 1 week after lifting heavy object over his head. Hx of lumbar fusion in 2010, IDDM, HTN, High Cholesterol. Some constipation. No saddle anesthesia. Noted dark urine recently. Given prednisone, Tramadol and Zofran. Last updated by Hazel Schofield NP at 02/17/24 15:42 PAWSS Have you Been Recently Intoxicated or Drunk Within the Last 30 days?: No Have you Ever Experienced Previous Episodes of Alcohol Withdrawal?: No Have you ever Experienced Withdrawal Seizures?: No Have you ever Experienced Delirium Tremens(DT)s?: No Have you ever undergone Alcohol Rehabilitation Treatment (i.e, inpt ot outpatient treatment programs)?: No Have you ever Experienced Blackouts?: No Have you ever Combined Alcohol with other Downers within the last 90 days?: No Have you ever Combined Alcohol with any other Substance of Abuse during the last 90 days?: No Positive Blood Alcohol level on Presentation? [PCS.BAL]: No Evidence of Increased Autonomic Activity (i.e. HR>120, tremor, sweating, agitation, nausea)?: No Result: 0
[2024-02-17] MEDS: predniSONE 20 MG TAB 60 MG PO (14:14)
[2024-02-17] MEDS: Ondansetron O.D.T. 4 MG TABEF PO (14:14)
[2024-02-17] MEDS: traMADol 50 MG TAB PO (14:15)
[2024-02-17 14:38] LABS: Bilirubin Negative (Negative); Blood Small (Negative); Clarity Clear (Clear); Glucose >=1000 mg/dL (Negative); Ketones Negative (Negative); Leukocyte Esterase Negative (Negative); Nitrite Negative (Negative); Urobilinogen 0.2 mg/dL (Up to 0.2); pH 5.5 (5-8)
[2024-02-17 14:55] LABS: Bacteria Negative HPF (Negative); C & S Indicated? No; Casts 0-2 Hyaline LPF (Negative); Crystals Negative HPF (Negative); Epithelial Cells Few HPF (Negative); Mucus Negative (Negative); WBC Negative HPF (0-5)
--- NOTE | 2024-02-17 15:28 | DI.CT_ITS ---
Exam(s) CT RENAL COLIC WO EXAM: CT RENAL COLIC WO CLINICAL HISTORY: Hematuria, back pain. TECHNIQUE: Imaging Protocol: Axial computed tomography images with coronal and sagittal reformatted images were created and reviewed. Axial, coronal and sagittal images were reconstructed from the renal colic CT in bone and soft tissue algorithm. CONTRAST MATERIAL: Noncontrast COMPARISON: CT CT ABDOMEN PELVIS W from 07/07/[address] CHEST PE CTA from 09/20/[address] LUMBAR SPINE RECONS from 02/17/2024 FINDINGS: Lung Bases: Normal where visualized. Liver: Enlarged liver at 28 cm in length. moderate hepatic steatosis. No measurable mass. Gallbladder and biliary tract: No radiodense calculus or dilation. Pancreas: Normal density, no calcifications or inflammatory process. Spleen: Normal. Kidneys: Normal size, contour and axis. No radiodense stones or obstructive uropathy. No masses seen. Adrenal glands: No masses seen. Abdominal Aorta: Abdominal portion non-dilated. Soft tissues: Fat containing right inguinal hernia. Bladder: Symmetric distention, no gross wall thickening. No evidence of stones.No visible mass. Bowel: No obstruction or bowel wall thickening. Appendix normal. Reproductive: Unremarkable. Peritoneal cavity: No ascites, collection or mesenteric inflammatory response. Bones: Degenerative and postsurgical changes in the spine. IMPRESSION: Unremarkable noncontrast CT scan of the abdomen and pelvis. No evidence of urinary tract calculi or hydronephrosis. RADIATION DOSE DELIVERED: Total DLP DATA REPOSITORY: All CT scans at this facility are submitted to the National Radiology Data Registry (NRDR) Dose Index Registry (DIR) with the [employer] (ACR). RADIATION OPTIMIZATION: All CT scans at this facility use at least one of these dose optimization te chniques: automated exposure control; mA and/or kV adjustment per patient size (includes targeted exa ms where dose is matched to clinical indication); or iterative reconstruction.
--- NOTE | 2024-02-17 15:32 | DI.CT_ITS ---
Exam(s) CT LUMBAR SPINE RECONS EXAM: CT LUMBAR SPINE RECONS CLINICAL HISTORY: Hx lumbar fusion, back pain, constipation. TECHNIQUE: Imaging Protocol: Axial computed tomography images with coronal and sagittal reformatted images were created and reviewed COMPARISON: CT CT CHEST PE CTA from 09/20/2021 FINDINGS: Bones: The last intervertebral disc space is designated the L5/S1 level for the numbering purpose of this examination. The vertebral body heights are well maintained. Alignment is satisfactory. No fracture is seen. L1-2: No disc herniations or bulges are present. L2-3: Disc height is maintained. Small endplate osteophytes projecting posteriorly. Moderate poste rior disc bulging. This causes mild central canal stenosis. No neural foraminal narrowing. L3-4: No disc herniations or bulges are present. L4-5: Minimal disc bulging. Calcification of the posterior margin of the disc. Degenerative moody ges of the facet joints. No central canal stenosis. Moderate bilateral neural foraminal narrowing. L5-S1: Mild artifact related to posterior fusion hardware. Disc spacer. The visualized SI joints and sacrum are will maintained. Soft Tissues: The paraspinal soft tissues are unremarkable. IMPRESSION: Mild central canal stenosis at L2-3 secondary to disc bulging. Moderate bilateral neural foraminal narrowing at C4-5 secondary to combination of facet degenerative changes and disc bulging. Hardware at L5-S1 appears intact. CONTRAST MATERIAL: Noncontrast RADIATION DOSE DELIVERED: Total DLP Total DLP DATA REPOSITORY: All CT scans at this facility are submitted to the National Radiology Data Registry (NRDR) Dose Index Registry (DIR) with the [employer] ([employer]). RADIATION OPTIMIZATION: All CT scans at this facility use at least one of these dose optimization te chniques: automated exposure control; mA and/or kV adjustment per patient size (includes targeted exa ms where dose is matched to clinical indication); or iterative reconstruction.
--- NOTE | 2024-02-17 15:45 | DI.CT_ITS ---
Exam(s) CT THORACIC SPINE WO EXAM: CT THORACIC SPINE WO CLINICAL HISTORY: BACK PAIN CONSTIPATION HEMATURIA. TECHNIQUE: Imaging Protocol: Axial computed tomography images with coronal and sagittal reformatted images were created and reviewed. CONTRAST MATERIAL: Noncontrast COMPARISON: CT CT CHEST PE CTA from 09/20/2021 FINDINGS: Bones: No fractures or dislocations are seen. The alignment of the spine is normal including the cerv icothoracic junction. Small endplate osteophytes projecting posteriorly, eccentric toward the right at T 4- 5, T5-6 and T6- 7. Endplate osteophytes projecting anteriorly at T 8 9, T10-11, at T11-12 and T12-L1. Osteophytes also project posteriorly at T10-11. There are facet degenerative changes as well which combine with the d isc osteophytes to produce mild central canal stenosis, of the AP dimension. Tiny posterior projecti ng osteophyte at T11- 12. Right-sided osteophyte at T 12 L1 causes right-sided neural foraminal narrowing. Soft tissues: The soft tissues of the chest are unremarkable. No large disk herniations are identifie d. IMPRESSION: Combination of degenerative changes cause mild central canal stenosis at T10-11. Right neural forami nal narrowing at T12-L1. No visible disc herniation. RADIATION DOSE DELIVERED: Total DLP DATA REPOSITORY: All CT scans at this facility are submitted to the National Radiology Data Registry (NRDR) Dose Index Registry (DIR) with the [employer] (ACR). RADIATION OPTIMIZATION: All CT scans at this facility use at least one of these dose optimization te chniques: automated exposure control; mA and/or kV adjustment per patient size (includes targeted exa ms where dose is matched to clinical indication); or iterative reconstruction.
== END 2024-02-17 16:44 | disposition home or self-care (01) ==
PROVIDERS: Registered Nurse Emergency; Emergency Provider Physician Assistant; PCP Family Medicine
DX: M54.50 Low back pain, unspecified (principal); X50.0XXA Overexertion from strenuous movement or load, initial encounter
CPT/HCPCS: 99284; 72128; 74176; 81003; 81015; 99283; J7512

== ENCOUNTER 2025-02-20 05:44 | Emergency (ER) | payer SELFPAY ==
--- NOTE | 2025-02-20 05:45 | DI.RAD_ITS ---
Exam(s) XR RIBS LT W PA LAT CHEST EXAM: XR RIBS LT W PA LAT CHEST CLINICAL HISTORY: left lower rib pain after cough TECHNIQUE: 2D digital imaging was performed. Eight images are obtained. COMPARISON: CR,XR XR CHEST 2V PA LATERAL from 07/07/2019 FINDINGS: MEDIASTINUM: Normal. HEART: Normal. PULMONARY VASCULATURE: Normal. LUNGS: Clear. PLEURAL SPACE: No pleural effusion or pneumothorax. BONE:Within normal limits for the patient's age. There is stable anterior wedging of T12. LEFT RIBS: Normal. OTHER FINDINGS:Normal. IMPRESSION: 1. No acute pulmonary findings. 2. Unremarkable left ribs. 3. The preliminary [facility] report was reviewed. DATA REPOSITORY: RADIATION DOSE DELIVERED:
[2025-02-20 05:47] VITALS: BP 166/89; PULSE 85; RESP 20; TEMP 35.6; O2SAT 98
[2025-02-20 05:50] VITALS: PULSE 90; O2SAT 98
--- NOTE | 2025-02-20 05:56 | ED.GENADUL_ITS ---
Discharge Plan Disposition Patient Disposition: Home Condition: Good Discharge Details Clinical Impression: Rib pain on left side Primary Care Provider: Norm Chamorro ED Provider: Sergio Hillman Home Meds and New Rx's Prescriptions: New cyclobenzaprine 10 mg tablet 10 mg PO TID Qty: 14 0RF lidocaine [Lidoderm] 5 % adhesive patch,medicated 1 patch Topical Q24H Qty: 15 0RF No Action albuterol sulfate 90 mcg/actuation HFA aerosol inhaler 2 puff inhalation Q6H PRN insulin degludec [Tresiba FlexTouch U-200] 200 unit/mL (3 mL) insulin pen 50 unit subcut DAILY valacyclovir 1 gram tablet 1,000 mg PO BID fenofibrate nanocrystallized 145 mg tablet 145 mg PO DAILY Patient Comments: TAKE ONE TABLET BY MOUTH EVERY DAY losartan 25 mg tablet 25 mg PO DAILY Patient Comments: TAKE ONE TABLET BY MOUTH EVERY DAY levothyroxine 150 mcg tablet 400 mcg PO DAILY Patient Comments: TAKE ONE TABLET BY MOUTH EVERY DAY insulin aspart U-100 [Novolog FlexPen U-100 Insulin] 100 unit/mL (3 mL) insulin pen 20 unit SUBCUT HS PRN PRN Patient Comments: INJECT 14 UNITS SUBCUTANEOUSLY AT BREAKFAST AND 17 UNITS AT LUNCH AND DINNER insulin degludec [Tresiba FlexTouch U-200] 200 unit/mL (3 mL) insulin pen 50 unit SUBCUT DAILY Patient Comments: INJECT 60 UNITS SUBCUTANEOUSLY EVERY MORNING atorvastatin 20 mg tablet 20 mg PO DAILY Patient Comments: TAKE ONE TABLET BY MOUTH EVERY EVENING Discharge Instructions Instructions: Rib Fracture or Bruised Rib ED Additional Instructions: At this time there is concern that you have a mild fracture on your left lower rib. You can take 800 mg of ibuprofen every 6 hours and 1000 mg of Tylenol every 6 hours. These are the maximum doses. Please apply the Lidoderm patches as prescribed to help with the pain. Take the cyclobenzaprine muscle relaxer only as needed. Please do not operate any heavy machinery, drive, shoot guns, or swim while on this medication as it can make you quite sleepy. The literature now suggest that you can use a rib binder to help with pain as long as you are still using the incentive spirometer to maintain good lung aeration. Please use the incentive spirometer as directed. If you notice any worsening of your symptoms, or any new symptoms such as vomiting, diarrhea, fever, chills, shortness of breath, chest pain, numbness, weakness, or fainting , please return immediately to the emergency department for reevaluation. Please follow up with your primary care provider as soon as possible for reassessment and reevaluation. As always, it was a pleasure participating in your medical care today. Referrals: Norm Chamorro [Primary Care Provider, Medicine] [facility] General Date/Time Provider Initiated Documentation: 02/20/25 05:46 . HPI Narrative: This is a 34-year-old male with a past medical history of type 2 diabetes, hypertension, high cholesterol, who presents today for evaluation of left-sided rib pain. Patient states that about 3 days ago he had coughed, and noticed a mild ache in his left lower lateral ribs. This evening he smoked some tobacco and marijuana and had another big cough, as soon as he did he heard what sounded like a twig snapping, had an immediate pain in the left lower lateral ribs. Pain is made worse to move or breathe, but is always otherwise constantly present. He took Aleve without any improvement. He denies any hemoptysis, any pain throughout the rest of his chest. Any heaviness like an elephant sitting on his chest. He denies any fever or chills. No history of PE, cardiac stents, or pneumothorax. Related Data Home Medications ?Medication ?Instructions ?Recorded ?Confirmed fenofibrate nanocrystallized 145 145 mg PO DAILY 09/2002/20/25 mg tablet insulin aspart U-100 100 unit/mL 20 unit subcut HS PRN PRN 09/20/21 02/20/25 (3 mL) subcutaneous pen (Novolog FlexPen U-100 Insulin aspart) insulin degludec 200 unit/mL (3 50 unit subcut DAILY 0 09/20/21 02/20/25 mL) subcutaneous pen (Tresiba FlexTouch U-200 insulin) levothyroxine 150 mcg tablet 400 mcg PO DAILY 09/20/21 02/20/25 losartan 25 mg tablet 25 mg PO DAILY 09/20/2102/11 atorvastatin 20 mg tablet 20 mg PO DAILY 02/17/2402/11 albuterol sulfate 90 mcg/actuation 2 puff inhalation Q 6H PRN 03/16/24 02/20/25 aerosol inhaler insulin degludec 200 unit/mL (3 50 unit subcut DAILY 0 03/16/24 02/20/25 mL) subcutaneous pen (Tresiba FlexTouch U-200 insulin) valacyclovir 1 gram tablet 1,000 mg PO BID 03/16/24 cyclobenzaprine 10 mg tablet 10 mg PO TID #14 tabs 05/07 lidocaine 5 % topical patch 1 patch topical Q24H #15 e a 02/20/25 (Lidoderm) Previous Rx's ?Medication ?Instructions ?Recorded cyclobenzaprine 10 mg tablet 10 mg PO TID #14 tabs 05/07 lidocaine 5 % topical patch 1 patch topical Q24H #15 e a 02/20/25 (Lidoderm) Allergies Allergy/AdvReac Type Severity Reaction Status Date / Time cimetidine Allergy Unknown Verified 02/20/25 05:51 lisinopril Allergy cough Verified 02/20/25 05:51 metformin Allergy gi upset Verified 02/20/25 05:51 pioglitazone Allergy chest Verified 02/20/25 05:51 tightness amoxicillin AdvReac Mild Other (See Unverified 02/20/25 05:51 Comment) General Stated Complaint: Abd Prob JOSE: 3 Exam Narrative Exam Narrative: 1.Const: Well-nourished, Well-developed, appearing stated age 2.Eyes: PERRL, no conjunctival injection, and symmetrical lids. 3.ENT: Atraumatic external nose and ears. Moist MM. Neck: Symmetric, trachea midline, No thyromegaly. 4.CVS: +S1/S2, Peripheral pulses 2+ and equal in all extremities. Brisk capillary refill in all extremities. 5.RESP: Unlabored respiratory effort. Clear to auscultation bilaterally. No wheezes rales or rhonchi. Patient has reproducible tenderness over ribs 9 and 10, notably severe on deep palpation. No hernia. No subcutaneous crepitus. No unequal breath sounds. 6.GI: Soft, Nontender/Nondistended, No hepatosplenomegaly. No guarding or rebound. 7.MSK: Normocephalic/Atraumatic, Extremities w/o deformity or ttp No cyanosis or clubbing, Normal movement of all extremities 8.Skin: Warm, Dry. No rashes or lesions. 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 Sensation grossly intact, no focal neurologic deficits. 10.Psych: (AAO) x3. Appropriate mood and affect Course Vital Signs Vital signs: Vital Signs Temperature 35.6 C L 02/20/25 05:47 Pulse 85 02/20/25 05:47 Respiratory Rate 20 02/20/25 05:47 Blood Pressure 166/89 H 02/20/25 05:47 Pulse Oximetry 98 02/20/25 05:47 Temperature 35.6 C L 02/20/25 05:47 Pulse 85 02/20/25 05:47 Respiratory Rate 20 02/20/25 05:47 Blood Pressure 166/89 H 02/20/25 05:47 Blood Pressure Position Sitting 02/20/25 05:47 Pulse Oximetry 98 02/20/25 05:47 Oxygen Delivery Method Room Air 02/20/25 05:47 Oxygen Flow Rate 0 02/20/25 05:47 Medical Decision Making This is a 34-year-old male with a past medical history of type 2 diabetes, hypertension, high cholesterol, who presents today for evaluation of left-sided rib pain. Patient states that about 3 days ago he had coughed, and noticed a mild ache in his left lower lateral ribs. This evening he smoked some tobacco and marijuana and had another big cough, as soon as he did he heard what sounded like a twig snapping, had an immediate pain in the left lower lateral ribs. Pain is made worse to move or breathe, but is always otherwise constantly present. He took Aleve without any improvement. He denies any hemoptysis, any pain throughout the rest of his chest. Any heaviness like an elephant sitting on his chest. He denies any fever or chills. No history of PE, cardiac stents, or pneumothorax. Physical exam demonstrates notable reproducible rib tenderness over ribs 9 and 10. No hernia, subcutaneous crepitus, unequal breath sounds or other abnormalities. No abdominal tenderness on palpation. Differential is highest for rib crack or fracture, less likely for diaphragmatic rupture, pneumothorax. Intercostal muscle strain is high on the differential as well. Symptoms appear inconsistent with abdominal pathology, ACS, or PE. Will get x-ray, give Tylenol Motrin and Lidoderm patch, monitor closely and reassess. 6:45 AM Patient feels improved pain after Tylenol Motrin and Lidoderm patch. On my personal review, there does appear to be a small fracture pattern of the left lower lateral rib around rib 9. No pneumothorax. No other significant abnormality. Will recommend rib binder if needed, incentive spirometer, NSAID therapy,. Discussed red flags for which to return. I have extensively reviewed the treatment plan and discharge instructions with the patient and their family. I have addressed all patient concerns at this time. The patient and family was made aware of what symptoms to monitor for that would warrant a return to the emergency department. Discussed the plan with the patient and family, they demonstrate verbal understanding and agreement with our assessment and plan at this time. The documentation in this chart was dictated using [employer] dictation software. Please excuse any dictation errors. PFSH All Active Problems (Updated 02/20/25 @ 06:42 by Sergio Hillman DO) Rib pain on left side (Acute) Type 2 diabetes mellitus (Acute) Tobacco user (Acute) Spondylolisthesis (Acute) Reactive airway disease (Acute) Proteinuria (Acute) Nicotine dependence (Acute) Myocardial infarction (Chronic) Morbid obesity (Acute) Microhematuria (Acute) Marijuana user (Acute) Lumbar radiculopathy (Acute) Hypothyroidism (Chronic) Hypertriglyceridemia (Acute) Hyperlipidemia (Acute) History of rectal bleeding (Acute) Goiter (Acute) Family history of colonic polyps (Acute) Episodic chewing tobacco dependence (Acute) Edema of lower extremity (Acute) Cyst of perineum in male (Acute) Change in bowel habits (Acute) Brachial plexus disorders (Acute) Benign essential hypertension (Acute) Medical History Smoker Herpes Asthmatic bronchitis Surgical History Hx of spinal fusion History of back surgery 2014 Social History Smoking/Tobacco Use Status: Current every day Tobacco Type: smokeless tobacco Smoking risk assessment performed?: Yes Alcohol Intake: current Alcohol Intake frequency: holidays/special occasions only Drug use: Occasionally Substance use type: marijuana Do you feel safe at home: Yes Do you feel safe in your relationship?: Yes
[2025-02-20] MEDS: Acetaminophen 500 MG TAB 1000 MG PO (06:03)
[2025-02-20] MEDS: Ibuprofen 800 MG TAB PO (06:03)
[2025-02-20] MEDS: Lidocaine 5% Patch 1 PATCH TP (06:03)
[2025-02-20] MEDS: Cyclobenzaprine 10 MG TAB PO (06:03)
--- NOTE | 2025-02-20 07:01 | DI.[facility]_ITS ---
PROCEDURE INFORMATION: Exam: XR Left Ribs Exam date and time: 02/20/2025 6:09 AM Age: 34 years old Clinical indication: Other: Left lower rib pain after cough TECHNIQUE: Imaging protocol: Radiologic exam of the left ribs. Views: 2 views. COMPARISON: CT CHEST PE CTA 09/20/2021 2:31 PM FINDINGS: Bones/joints: No acute displaced fracture seen. Soft tissues: Normal. IMPRESSION: No acute findings. PROCEDURE INFORMATION: Exam: XR Chest Exam date and time: 02/20/2025 6:09 AM Age: 34 years old Clinical indication: Other: Left lower rib pain after cough TECHNIQUE: Imaging protocol: Radiologic exam of the chest. Views: 2 views. COMPARISON: CT CHEST PE CTA 09/20/2021 2:31 PM FINDINGS: Lungs: Unremarkable. No consolidation. Pleural spaces: Unremarkable. No pleural effusion. No pneumothorax. Heart/Mediastinum: Unremarkable. No cardiomegaly. Bones/joints: Unremarkable. IMPRESSION: No acute findings. Dictated and Authenticated by: Shantelle Zarate MD. Orderin Kady Hill MD
== END 2025-02-20 07:17 | disposition home or self-care (01) ==
PROVIDERS: Emergency Provider Student in an Organized Health Care Education/Training Program; PCP Family Medicine
DX: R07.81 Pleurodynia (principal)
CPT/HCPCS: 99283 ×2; 71046; 71100